=== PATIENT | female | born 1950 | race Caucasian/White ===

== ENCOUNTER 2018-05-04 13:28 | Inpatient (IN) | payer MEDICARE ==
[~2018-05-04] VITALS: Ht 162.6 cm; Wt 74.8 kg
[2018-05-04] VITALS (16 sets, daily range): BP systolic 132–160; BP diastolic 48–78; BMI 27.5
--- NOTE | ~2018-05-04 | DS ---
PATIENT:UDAY WILSON :46 MEDICAL RECORD: [id number] DISCHARGE SUMMARY ADMISSION DATE: 05/04/18 DISCHARGE DATE: 05/06/18 DATE OF SERVICE: 05/05/2018 DIAGNOSES: 1. Non-Q-wave myocardial infarction. 2. Coronary artery disease. 3. Percutaneous transluminal coronary angioplasty stent of left circumflex and right coronary artery this admission with concomitant disease of LAD. 4. Hypertension. 5. Hyperlipidemia. HOSPITAL COURSE: Ms. Wilson presents with a non-Q-wave myocardial infarction, found to have critical disease of all 3 heart vessels, underwent PTCA stent of her left circumflex and right coronary artery this admission, was discharged home with the addition of aspirin, Plavix, Pravachol, metoprolol to her medical regimen and will follow up with [facility] within the week for PTCA stent of the LAD. TRANSINT:[id number] Voice Confirmation ID: [id number] DOCUMENT ID: [id number] NATHAN TAYLOR MD at 1457 CC: [id number] DICTATION DATE: 05/06/18927 ORACLE DATABASE ADMINISTRATOR: 05/07/18 0623 DIS IN 05/06/18 [address] [place] [address]
--- NOTE | ~2018-05-04 | HEMODYNAMI ---
PATIENT:UDAY WILSON MEDICAL RECORD: [id number] : 46 LOCATION:D.I D.03 ADMISSION DATE: 05/04/18 Generatedon:05/04/201815:47 Patient name: UDAY WILSON Patient #: [id number] SSN: : 1950 Date of study: 05/04/2018 Page: Of Hemodynamic Procedure Report Patient Data Patient Demographics Procedure consent was obtained First Name: UDAY Gender: Female Last Name: STEVE : 1950 Patient #: [id number] Age: 68 year(s) Race: Unknown Additional ID: [id number] Contact details Address: UNKNOWN State: [place] City: UNKNOWN Zip code: . Admission Admission Data Procedure Procedure Types Cath Procedure Diagnostic Procedure LHC LHC w/Coronaries Sedation Charges Moderate Sedation up to 15 minutes PCI Procedure AMI/SVG/DRUGLESS DOCTOR PTCA or Stent AMI-BMS/SHRUTHI Initial Procedure Description Procedure Date Procedure Date: 05/04/2018 Procedure Start Time: 13:43 Procedure End Time: 14:06 Procedure Staff Name Function Nae Valadez RT Monitor Rommel Ruggiero RT Scrub Arnel Diego RN Nurse Moise Gamboa MD Performing Physician Procedure Data Cath Procedure Fluoroscopy Diagnostic fluoroscopy Total fluoroscopy Time: 3.6 time: 3.6 min min Diagnostic fluoroscopy Total fluoroscopy dose: 362 dose: 362 mGy mGy Contrast Material Contrast Material Type Amount (ml) Isovue 300 137 Entry Location Entry Primary Successful Side Size Upsize Upsize Entry Closure Succes sful Closure Location (Fr) 1 (Fr) 2 (Fr) Remarks Device Remarks Femoral Right 6 Fr Exoseal artery Short Estimated blood loss: 10 ml Diagnostic catheters Device Type Used For End Catheter Placement MULTIPACK Pigtail 5 Fr LV Angiography catheter MULTIPACK JL 4.0 5Fr Left Coronary catheter Angiography MULTIPACK 3DRC 5Fr Right Coronary catheter Angiography Procedure Complications No complications Procedure Medications Medication Administration Route Dosage Oxygen etCO2 Nasal cannula 2 l/min Heparin Flush Bag added to field 2 bags (1000units/500ml NS) 0.9% NaCl I.V. 100 ml/hr Fentanyl I.V. 50 mcg Versed I.V. 1 mg Fentanyl I.V. 50 mcg Versed I.V. 1 mg Nitroglycerin IC/IA I.C. 200 mcg Nitroglycerin IC/IA I.C. 200 mcg Integrilin (Bolus I.C. 7.3 ml 2mg/ml) Nitroglycerin IC/IA I.C. 200 mcg Plavix P.O. 300 mg Hemodynamics Rest Heart Rate: 74 (bpm) Snapshots Pre Cath Intra NCS Post Cath Vital Signs Time Heart Resp SPO2 etCO2 NIBP (mmHg) Rhythm Pain Sedation Rate (ipm) (%) (mmHg) Status Level (bpm) 13:35:02 65 18 99 0 153/73(115) NSR 0 (11) 10(A) , No pain 13:39:22 76 17 97 0 154/73(119) NSR 0 (11) 10(A) , No pain 13:43:42 74 17 97 0 136/66(113) NSR 0 (11) 10(A) , No pain 13:47:58 79 17 96 0 123/68(92) NSR 0 (11) 9(A) , No pain 13:52:08 80 17 97 0 128/73(108) NSR 0 (11) 9(A) , No pain 13:56:18 88 16 95 0 142/76(116) NSR 0 (11) 9(A) , No pain 14:00:34 76 17 96 0 156/76(127) NSR 0 (11) 9(A) , No pain 14:04:50 73 14 97 0 154/82(113) NSR 0 (11) 9(A) , No pain Medications Time Medication Route Dose Verified Delivered Reason Notes E ffectiveness by by 13:39:00 Oxygen etCO2 2 Moise Seals Per Nasal l/min Cooper Diego RN physician cannula 13:39:10 Heparin Flush added 2 Moise Seals used for Bag to bags Cooper Diego warehouse shipping associate (1000units/500ml field NS) 13:39:20 0.9% NaCl I.V. 100 Moise Seals Per ml/hr Cooper Diego RN physician 13:42:49 Fentanyl I.V. 50 Moise Seals for sedation misael Diego RN 13:42:58 Versed I.V. 1 mg Moise Seals for sedation Cooper Diego RN 13:46:16 Fentanyl I.V. 50 Moise Seals for sedation misael Diego RN 13:46:19 Versed I.V. 1 mg Moise Seals for sedation Cooper Diego RN 13:53:47 Nitroglycerin I.C. 200 Moise Phipps for IC/IA mcg Cooper Gamboa MD vasodilation 13:54:59 Nitroglycerin I.C. 200 Moise Phipps for IC/IA mcg Cooper Gamboa MD vasodilation 13:55:16 Integrilin I.C. 7.3 Moise Phipps for (Bolus 2mg/ml) ml Cooper Gamboa MD antiplatelet therapy 13:56:11 Nitroglycerin I.C. 200 Moise Phipps for IC/IA mcg Cooper Gamboa MD vasodilation 14:02:56 Plavix P.O. 300 Moise Seals for mg Cooper Diego RN antiplatelet therapy Procedure Log Time Note 13:22:32 Patient received from ED to CCL 3 Alert and oriented. Tansferred to table in Supine position. 13:22:49 PATIENT ARRIVED DIRECTLY TO MACHINE SETUP OPERATOR 13:22:54 Plan of Care:Hemodynamics will remain stable., Cardiac rhythm will remain stable., Comfort level will be maintained., Respiratory function will remain adequate., Patient/ family verbilizes understanding of procedure., Procedure tolerated without complication., Recovers from procedure without complications.. 13:22:56 Time tracking: Regular hours (M-F 7:00 - 5:00) 13:22:57 Warm blankets applied, and felisha hugger turned on for patient comfort. 13:22:58 Correct patient and procedure confirmed by team. 13:22:59 Signed procedure consent form obtained from patient. 13:27:48 ECG and BP/O2 sat monitors applied to patient. 13:27:49 Full Disclosure recording started 13:33:52 Vital chart was started 13:34:06 Rhythm: sinus rhythm 13:34:32 H&P Date Dictated: 05/04/2018 Emergent; H&P N/A. 13:34:33 Pre-op teaching completed and patient verbalized understanding. 13:34:33 Pre-procedure instructions explained to patient. 13:34:36 Family unavailable. 13:34:37 Patient NPO since Midnight. 13:34:50 Is the patient allergic to Iodine/contrast media? No. 13:34:52 Is patient on blood thinner?No 13:34:53 Patient diabetic? No. 13:34:56 Previous problem with sedation/anesthesia? No ? 13:34:57 Sleep apnea? No 13:34:57 Snore? Yes 13:34:59 Opens mouth fully? Yes 13:34:59 Deviated septum? No 13:35:00 Sticks out tongue? Yes 13:35:02 Airway obstruction? No ? 13:35:03 Dentures? No ? 13:35:06 Pre procedure: right dorsailis pedis pulse 2+ Normal; easily identifiable; not easily obliterated 13:38:36 IV patent on arrival in right antecubital with 0.9% NaCl at [facility]. 13:38:37 Lab results completed and on chart. 13:38:40 Right groin area was prepped with chlora-prep and draped in sterile fashion 13:38:41 Alarms reviewed by R. N. 13:38:42 Sharps counted by scrub and verified by R.N. 13:38:43 Final Timeout: patient, procedure, and site verified with staff and physician. All members of the team are in agreement. 13:38:45 Right groin site verified by team. 13:38:47 Physical assessment completed. ASA score P 4 - A patient with severe systemic disease that is a constant threat to life as per Moise Gamboa MD. 13:38:49 Sedation plan: IV Moderate Sedation Medication:Versed, Fentanyl 13:39:00 Oxygen 2 l/min etCO2 Nasal cannula was administered by Arnel Diego RN; Per physician; 13:39:10 Heparin Flush Bag (1000units/500ml NS) 2 bags added to field was administered by Arnel Diego RN; used for procedure; 13:39:20 0.9% NaCl 100 ml/hr I.V. was administered by Arnel Diego RN; Per physician; 13:41:31 Use device set Femoral Dx 13:41:32 ACIST Syringe (71533) opened to sterile field. 13:41:33 DIAGNOSTIC WIRE .035 260cm J wire (606447) opened to sterile field. 13:41:33 Medline Cath Pack ([id number]) opened to sterile field. 13:41:33 Bag Decanter (2002S) opened to sterile field. 13:41:34 ACIST Hand Control (44367) opened to sterile field. 13:41:35 DIAGNOSTIC Multipack 5Fr catheter set (GA7765) opened to sterile field. 13:41:35 ACIST Manifold (89829) opened to sterile field. 13:41:36 Tegaderm 4 x 4 (1626W) opened to sterile field. 13:41:44 Use device set TAUTH PCI 13:41:45 SHEATH 6FR [place] (RHL903) opened to sterile field. 13:41:47 CHOICE PT Extra Support 182cm wire ([id number]) opened to sterile field. 13:41:50 INFLATOR Merit BasixCompak (RO3829) opened to sterile field. 13:42:49 Fentanyl 50 mcg I.V. was administered by Arnel Diego RN; for sedation; 13:42:58 Versed 1 mg I.V. was administered by Arnel Diego RN; for sedation; 13:43:15 Procedure started. 13:43:19 Local anesthetic to right femoral artery with Lidocaine 2% by Moise Gamboa MD.INITIAL ACCESS ONLY 13:43:27 A 6 Fr Short sheath was inserted into the Right Femoral artery 13:43:50 A MULTIPACK Pigtail 5 Fr catheter was advanced over the wire and used for LV Angiography. 13:44:18 LV gram done using OSEGUERA 13:44:22 Injector settings: Ml/sec: 10, Volume: 20, 13:44:23 Catheter removed. 13:44:31 A MULTIPACK JL 4.0 5Fr catheter was advanced over the wire and used for Left Coronary Angiography. 13:45:25 GUIDE 6FR EBU 3.0 SH catheter ([id number]) opened to sterile field. 13:45:41 Baseline sample Acquired. 13:45:55 A MULTIPACK 3DRC 5Fr catheter was advanced over the wire and used for Right Coronary Angiography. 13:46:16 Fentanyl 50 mcg I.V. was administered by Arnel Diego RN; for sedation; 13:46:19 Versed 1 mg I.V. was administered by Arnel Diego RN; for sedation; 13:46:33 Catheter removed. 13:49:19 6 Fr EBU 3.0 SH guide catheter was inserted over the wire 13:49:37 CHOICE PT ES wire advanced. 13:49:48 Inflate balloon Inflation number: 1 A EUPHORA 2.5 x 15 Balloon ([id number]) was prepped and advanced across the Mid CX, then inflated to 7 REMY for 0:06 (min:sec). 13:49:55 Inflation number: 2 The EUPHORA 2.5 x 15 Balloon ([id number]) was reinflated across the Mid CX, to 7 REMY for 0:04 (min:sec). 13:50:09 Balloon removed over the wire. 13:52:05 Place stent Inflation Number: 3 A CARINE RX 2.5 x 22 stent ([id number]) was prepped and advanced across the Mid CX. The stent was deployed at 13 REMY for 0:05 (min:sec). 13:53:47 Nitroglycerin IC/IA 200 mcg I.C. was administered by Moise Gamboa MD; for vasodilation; 13:54:59 Nitroglycerin IC/IA 200 mcg I.C. was administered by Moise Gamboa MD; for vasodilation; 13:55:16 Integrilin (Bolus 2mg/ml) 7.3 ml I.C. was administered by Moise Gamboa MD; for antiplatelet therapy; 13:56:11 Nitroglycerin IC/IA 200 mcg I.C. was administered by Moise Gamboa MD; for vasodilation; 13:57:16 Guide catheter removed. 13:57:16 Wire removed. 13:57:23 Sheath removed intact; hemostasis achieved with Exoseal to the Right Femoral artery. 13:57:25 Procedure ended.(Physican Out) 13:58:12 Fluoroscopy time 03.60 minutes. 13:58:17 Fluoroscopy dose: 362 mGy 13:58:17 Flurop Dose total: 362 13:58:22 Contrast amount:Isovue 300 137ml. 13:58:23 Sharps counted by scrub and verified by R.N. 13:58:24 Insertion/operative site no bleeding no hematoma. 13:58:28 Post-op/insertion site Right Femoral artery dressed using a 4 x 4 and Tegaderm. 13:58:33 Post right femoral artery:stable, clean and dry 13:58:35 Post Procedure Pulses reassessed and unchanged 13:58:37 Post-procedure physical assessment completed. ASA score P 3 - A patient with severe systemic disease as per Moise Gamboa MD. 13:58:57 Post procedure rhythm: unchanged. 13:59:01 Estimated blood loss: 10 ml 13:59:05 Post procedure instruction explained to patient.Patient verbalizes understanding. 13:59:06 Patient needs reinforcement of post procedure teaching. 14:02:00 Procedure type changed to Cath procedure, Diagnostic procedure, LHC, LHC w/Coronaries, Sedation Charges, Moderate Sedation up to 15 minutes, PCI procedure, AMI/SVG/DRUGLESS DOCTOR PTCA or Stent, AMI-BMS/SHRUTHI Initial 14:02:18 Procedure Complication : No complications 14:02:44 See physician's report for complete and final results. 14:02:56 Plavix 300 mg P.O. was administered by Arnel Diego RN; for antiplatelet therapy; 14:03:12 EXOSEAL 6Fr (EX600) opened to sterile field. 14:05:15 Procedure and supply charges have been captured, reviewed, submitted and are correct. 14:05:49 Vital chart was stopped 14:05:51 Report given to CVICU. 14:05:54 Patient transfered to CVICU with Bed. 14:06:02 Full Disclosure recording stopped 14:06:02 Procedure ended. 14:06:06 End room use (Document Last) Intervention Summary Intervention Notes Time ActionType Lesion and Equipment Used Action# Pressure Duration Attributes 13:49:48 Inflate Mid CX EUPHORA 2.5 x 1 7 00:06 balloon 15 Balloon ([id number]) 13:49:55 Reinflate Mid CX EUPHORA 2.5 x 2 7 00:04 balloon 15 Balloon ([id number]) 13:52:05 Place stent Mid CX CARINE RX 2.5 x 3 13 00:05 22 stent ([id number]) Device Usage Item Name Manufacture Quantity Catalog Number Hospital Part Current M inimal Lot# / Charge Number Stock Stock Serial# Code ACIST Syringe Acist 1 74791 661970 492646 136909 2 0 (94839) Medical Systems Inc Bag Decanter Microtek 1 114590 81088 959653 5 () Medical Inc. Medline Cath Medline 1 [id number] 994294 20854 789780 5 Pack ([id number]) DIAGNOSTIC [place] 1 483673 732490 603214 432163 3 0 WIRE .035 260cm J wire (304797) ACIST Hand Acist 1 21089 582866 681893 478258 5 Control Medical (27622) Systems Inc ACIST Manifold Acist 1 34838 578729 021232 515897 5 (91624) Medical Systems Inc DIAGNOSTIC Cardinal 1 ZH2833 906960 15771 047255 3 0 Multipack 5Fr Health catheter set ([id number]) Tegaderm 4 x 4 3M 1 1626W 639739 888486 776093 5 (1626W) SHEATH 6FR Terumo 1 CZQ925 597560 822721 155660 4 0 [place] (ZUS419) CHOICE PT [place] 1 [id number] 527986 349851 361714 5 Extra Support Scientific 182cm wire ([id number]) INFLATOR Merit Merit 1 TG4727 004932 836527 830193 1 5 PhoneGuard ([id number]) MULTIPACK Cardinal 1 671658 5 Pigtail 5 Fr Health catheter MULTIPACK JL Cardinal 1 [id number] 5 4.0 5Fr Health catheter GUIDE 6FR EBU Medtronic 1 [id number] 283074 36171 659667 0 3.0 SH catheter ([id number]) MULTIPACK 3DRC Cardinal 1 083131 5 5Fr catheter Health EUPHORA 2.5 x Medtronic 1 [id number] 700614 922107 498202 5 [id number] 15 Balloon ([id number]) CARINE RX 2.5 x Medtronic 1 [id number] 931746 4088463 776061 5 [id number] 22 stent ([id number]) EXOSEAL 6Fr Cardinal 1 EX600 959573 132312 543828 1 0 (EX600) Health Signature Audit [place] Stage Time Signature Unsigned Intra-Procedure 05/04/2018 Nae 2:09:21 PM Counts RT(R) Signatures Monitor : Nae Signature : Counts RT Date : Time : [facility] [address] [place] [address]
--- NOTE | ~2018-05-04 | HP ---
PATIENT: UDAY WILSON MEDICAL RECORD: [id number] ACCOUNT: [id number] LOCATION:[address] : 46 ADMISSION DATE: 05/04/18 PCP: No PCP HISTORY AND PHYSICAL EXAMINATION DIAGNOSES: 1. Non-Q-wave myocardial infarction. 2. Coronary artery disease. 3. Hypertension. 4. Hyperlipidemia. HISTORY OF PRESENT ILLNESS: Mrs. Wilson has had no previous cardiac history. She began having chest pain today at 2:00 a.m. She had an episode of chest pain earlier in the week; however, this resolved. The one at 2:00 a.m. did not resolve, she presents to [facility]. She has an increased troponin. She continues to have severe chest pain. PHYSICAL EXAMINATION: GENERAL APPEARANCE: Well-nourished, well-developed, appears stated age. Level of distress, comfortable. PSYCHIATRIC: Mental status, alert, normal affect. Orientation, oriented to time, place and person. EYES: Lids and conjunctiva, noninjected. No discharge, no pallor. ENT: Lips, teeth, gums, normal dentition. Oropharynx, no cyanosis, no pallor. NECK: Carotid arteries, bilateral normal upstroke, no bruits, no thrills. JUGULAR VEINS: No jugular venous pressure or distention. CERVICAL LYMPH NODES: Nontender, nonenlarged. THYROID: Not enlarged. Nontender. No nodules. LUNGS: Respiratory effort, unlabored. CHEST: Normal curvature. No thoracic deformity. No chest wall tenderness. Percussion, resonant. Auscultation, clear. No wheezes, no rales, no rhonchi. CARDIOVASCULAR: Precordial exam, nondisplaced. No heaves or pericardial thrills. Rate and rhythm, regular. Heart sounds, normal S1, normal S2. No S3, no gallop, no rub. Systolic murmur, not heard. Diastolic murmur, not heard. EXTREMITIES: No cyanosis, no edema. Peripheral pulses, full and equal in all extremities, except as noted. No bruits appreciated. ABDOMEN: Soft, nondistended. Normal aorta. No bruit. Nontender. No masses. Liver, nontender, no hepatomegaly. Spleen, nontender, no splenomegaly. MUSCULOSKELETAL: No joint tenderness. No joint swelling. No erythema. NEUROLOGICAL: Normal gait, normal strength, normal tone. SKIN: Warm and dry. OVERALL IMPRESSION: Non-Q-wave myocardial infarction with continued chest pain. No doubt she has hemodynamically significant coronary artery disease. We will proceed with coronary angiography. Further care depends upon the findings of the angiography. TRANSINT:[id number] Voice Confirmation ID: [id number] DOCUMENT ID: [id number] HISTORY AND PHYSICAL [id number] UDAY WILSON JEFFREY MD at 1456 CC: [id number] DICTATION DATE: 05/04/18 1405 UNIT EDUCATOR: 05/04/18 1437 DIS IN 05/06/18 [facility] [address] [place] [address]
--- NOTE | ~2018-05-04 | HEMODYNAMI ---
PATIENT:UDAY WILSON MEDICAL RECORD: [id number] : 46 [address] [id number] ADMISSION DATE: 05/04/18 Generatedon:05/06/20189:31 Patient name: UDAY WILSON Patient #: [id number] SSN: : 1950 Date of study: 05/06/2018 Page: Of Hemodynamic Procedure Report Patient Data Patient Demographics Procedure consent was obtained First Name: UDAY Gender: Female Last Name: STEVE : 1950 Patient #: [id number] Age: 68 year(s) Race: Unknown Additional ID: [id number] Contact details Address: [address] [place] [address] State: [place] City: [place] Zip code: [address] Past Medical History Allergies: No known allergies Admission Admission Data Admission Date: 05/04/2018 Admission Time: 14:43 Room #: 2130 Lab Results Lab Result Date: 05/06/2018 Lab Result Time: 4:45 Biochemistry Name Units Result Min Max BUN mg/dl 14 --(--*-)-- 7 18 Creatinine mg/dl 0.8 --(-*--)-- 0.6 1.3 CBC Name Units Result Min Max Hematocrit % 38.4 *-(----)-- 42 54 Hemoglobin g/dl 12.8 -*(----)-- 13.5 17.5 Procedure Procedure Types Cath Procedure Diagnostic Procedure FFR/IVUS Intra-Coronary IVUS Initial PCI Procedure Coronary Stent Coronary Stent Initial Peripheral Cath Diagnostic Procedure Abd/Extremity Extremities Bilat Lower Extremity Procedure Description Procedure Date Procedure Date: 05/06/2018 Procedure Start Time: 9:10 Procedure End Time: 9:29 Procedure Staff Name Function Moise Gamboa MD Performing Physician Ash Washington RT Monitor Arnel Diego RN Nurse Nae Valadez RT Scrub Procedure Data Cath Procedure Entry Location Entry Primary Successful Side Size Upsize Upsize Entry Closure [place] ccessful Closure Location (Fr) 1 (Fr) 2 (Fr) Remarks Device Remarks Radial Right 6 Fr Mechanical artery Short Compression Estimated blood loss: 10 ml Diagnostic catheters Device Type Used For End Catheter Placement DIAGNOSTIC Aqua Procedure Berenstein 125cm 5Fr catheter ([id number]) Procedure Complications No complications Procedure Medications Medication Administration Route Dosage Oxygen etCO2 Nasal cannula 2 l/min Heparin Flush Bag added to field 2 bags (1000units/500ml NS) 0.9% NaCl I.V. 100 ml/hr Radial Cocktail added to field 1 syringe (Verapomil 2mg/Nitro 400mcg/Heparin 1500units) Lidocaine 2% added to field 20 Phenergan I.V. 25 mg Fentanyl I.V. 50 mcg Versed I.V. 1 mg Heparin Bolus I.V. 4000 units Radial Cocktail I.A. 1 syringe (Verapomil 2mg/Nitro 400mcg/Heparin 1500units) Fentanyl I.V. 50 mcg Versed I.V. 1 mg Hemodynamics Rest HGB: 12.8 (g/dl) Heart Rate: 63 (bpm) Snapshots Pre Cath Intra NCS Post Cath Vital Signs Time Heart Resp SPO2 etCO2 NIBP (mmHg) Rhythm Pain Sedation Rate (ipm) (%) (mmHg) Status Level (bpm) 9:01:01 65 17 98 0 144/82(123) NSR 0 (11) 10(A) , No pain 9:05:17 63 17 99 0 127/79(109) NSR 0 (11) 10(A) , No pain 9:09:28 64 17 96 0 108/65(93) NSR 0 (11) 10(A) , No pain 9:13:38 65 17 95 21.1 98/59(74) NSR 0 (11) 9(A) , No pain 9:17:44 64 16 95 9.8 109/60(92) NSR 0 (11) 9(A) , No pain 9:21:54 63 17 96 18.1 101/61(83) NSR 0 (11) 9(A) , No pain 9:24:50 61 16 97 24.9 117/65(89) NSR 0 (11) 9(A) , No pain 9:29:02 97 21.9 113/60(97) NSR 0 (11) 9(A) , No pain Medications Time Medication Route Dose Verified Delivered Reason Note s Effectiveness by by 9:01:35 Oxygen etCO2 2 l/min Moise Seals Per physician Nasal Cooper Diego RN cannula 9:01:44 Heparin Flush added 2 bags Moise Seals used for Bag to Cooper Diego RN procedure (1000units/500ml field NS) 9:01:53 0.9% NaCl I.V. 100 Moise Seals Per physician ml/hr Cooper Diego RN 9:02:00 Radial Cocktail added 1 Moise Seals used for (Verapomil to syringe Cooper Diego RN procedure 2mg/Nitro field 400mcg/Heparin 1500units) 9:02:08 Lidocaine 2% added 20ml Moise Seals used for to vial Cooper Diego RN procedure field 9:04:54 Phenergan I.V. 25 mg Moise Seals for nausea Cooper Diego RN 9:09:34 Fentanyl I.V. 50 mcg Moise Seals for sedation Cooper Diego RN 9:09:42 Versed I.V. 1 mg Moise Seals for sedation Cooper Diego RN 9:11:28 Radial Cocktail I.A. 1 Moise Phipps for (Verapomil syringe Cooper Gamboa MD vasodilation 2mg/Nitro 400mcg/Heparin 1500units) 9:13:13 Heparin Bolus I.V. 4000 Moise Bhaktay for units Cooper Diego RN anticoagulation 9:19:10 Fentanyl I.V. 50 mcg Moise Seals for sedation Cooper Diego RN 9:19:16 Versed I.V. 1 mg Moise Seals for sedation Cooper Diego RN Procedure Log Time Note 8:24:57 Time tracking: Call back (After hours or weekends) 8:25:01 Plan of Care:Hemodynamics will remain stable., Cardiac rhythm will remain stable., Comfort level will be maintained., Respiratory function will remain adequate., Patient/ family verbilizes understanding of procedure., Procedure tolerated without complication., Recovers from procedure without complications.. 8:32:49 Arnel Diego RN sent for patient. Start room use. 8:46:37 Patient received from Med II to [facility] 1 Alert and oriented. Tansferred to table in Supine position. 8:46:38 Warm blankets applied, and felisha hugger turned on for patient comfort. 8:46:38 Correct patient and procedure confirmed by team. 8:46:39 Signed procedure consent form obtained from patient. 8:46:40 ECG and BP/O2 sat monitors applied to patient. 8:46:41 Pre-procedure instructions explained to patient. 8:46:42 Pre-op teaching completed and patient verbalized understanding. 8:46:43 Family in waiting room. 8:46:44 Patient NPO since Midnight. 8:59:52 Vital chart was started 9:01:35 Oxygen 2 l/min etCO2 Nasal cannula was administered by Arnel Diego RN; Per physician; 9:01:44 Heparin Flush Bag (1000units/500ml NS) 2 bags added to field was administered by Arnel Diego RN; used for procedure; 9:01:53 0.9% NaCl 100 ml/hr I.V. was administered by Arnel Diego RN; Per physician; 9:02:00 Radial Cocktail (Verapomil 2mg/Nitro 400mcg/Heparin 1500units) 1 syringe added to field was administered by Arnel Diego RN; used for procedure; 9:02:08 Lidocaine 2% 20ml vial added to field was administered by Arnel Diego RN; used for procedure; 9:03:41 Baseline sample Acquired. 9:03:43 Rhythm: sinus rhythm 9:03:46 Full Disclosure recording started 9:03:50 Patient allergic to No known allergies 9:03:51 Is the patient allergic to Iodine/contrast media? No. 9:03:52 Is patient on blood thinner?Yes 9:03:54 ACC The patient was administered the following blood thiners within the last 24 hours: ACCPlavix 9:04:06 Patient diabetic? Yes. 9:04:07 If diabetic: On Metformin? No 9:04:10 Previous problem with sedation/anesthesia? No ? 9:04:12 Snore? Yes 9:04:12 Sleep apnea? No 9:04:13 Deviated septum? No 9:04:13 Opens mouth fully? Yes 9:04:14 Sticks out tongue? Yes 9:04:16 Airway obstruction? No ? 9:04:19 Dentures? No ? 9:04:27 Pre procedure: right posterior tibial pulse 2+ Normal; easily identifiable; not easily obliterated 9:04:31 Pre procedure: left posterior tibial pulse 2+ Normal; easily identifiable; not easily obliterated 9:04:39 Modified Adriel's test Ulnar < 7 seconds 9:04:40 Patient pain scale 0/10 ?. 9:04:47 IV right wrist D/C'd due to infiltration. 9:04:54 Phenergan 25 mg I.V. was administered by Arnel Diego RN; for nausea; 9:04:59 IV started by Arnel Diego RN inleft forearm with a 22 gauge IV catheter with 0.9% NaCl at KVO. 9:05:08 IV Extension Set opened to sterile field. 9:05:08 IV CATHETER 22g opened to sterile field. 9::46 Lab Result : BUN 14 mg/dl 9::46 Lab Result : Creatinine 0.8 mg/dl 9:05:46 Lab Result : Hemoglobin 12.8 g/dl 9:05:46 Lab Result : Hematocrit 38.4 % 9:05:48 Lab results completed and on chart. 9:05:51 Right Radial & Left Groin area was prepped with chlora-prep and draped in sterile fashion 9:05:52 Alarms reviewed by R. N. 9:05:52 Sharps counted by scrub and verified by R.N. 9:05:54 Use device set Radial Dx or PCI 9:05:55 ACIST Syringe (81300) opened to sterile field. 9:05:55 Medline Cath Pack ([id number]) opened to sterile field. 9:05:56 Bag Decanter (2002) opened to sterile field. 9:05:56 ACIST Manifold (68587) opened to sterile field. 9:05:57 ACIST Hand Control (46261) opened to sterile field. 9:05:58 Tegaderm 4 x 4 (1626W) opened to sterile field. 9:05:58 MBrace Wrist Support ([id number]) opened to sterile field. 9:05:59 SHEATH 6FR Slender (80-7482) opened to sterile field. 9:06:00 DIAGNOSTIC WIRE .035 260cm J wire (256572) opened to sterile field. 9:06:19 INFLATOR Merit BasixCompak (FX1919) opened to sterile field. 9:06:20 CHOICE PT Extra Support 182cm wire ([id number]) opened to sterile field. 9::34 Physician paged 9:: Final Timeout: patient, procedure, and site verified with staff and physician. All members of the team are in agreement. 9::00 --------ALL STOP TIME OUT------ 9::00 Physician arrived 9::03 Right Radial & Left Groin site verified by team. 9:: Physical assessment completed. ASA score P 2 - A patient with mild systemic disease as per Moise Gamboa MD. 9::12 Sedation plan: IV Moderate Sedation Medication:Versed, Fentanyl 9::34 Fentanyl 50 mcg I.V. was administered by Arnel Diego RN; for sedation; 9::39 Zero performed for pressure channel P1 9::42 Versed 1 mg I.V. was administered by Arnel Diego RN; for sedation; 9::55 GUIDE 6FR AR 2.0 catheter ([id number]) opened to sterile field. 9::00 Procedure started. 9:10:04 Local anesthetic to right radial artery with Lidocaine 2% by Moise Gamboa MD.INITIAL ACCESS ONLY 9:10:20 A 6 Fr Short sheath was inserted into the Right Radial artery 9:11:28 Radial Cocktail (Verapomil 2mg/Nitro 400mcg/Heparin 1500units) 1 syringe I.A. was administered by Moise Gamboa MD; for vasodilation; 9:12:58 A DIAGNOSTIC Aqua Berenstein 125cm 5Fr catheter ([id number]) was advanced over the wire and used for Procedure. 9:13:13 Heparin Bolus 4000 units I.V. was administered by Arnel Diego RN; for anticoagulation; 9:14:04 Right leg runoff performed. 9:14:29 Right leg runoff performed. 9:14:55 Catheter exchanged over wire. 9:15:01 6 Fr ar 2 guide catheter was inserted over the wire 9:16:53 [place] Shosh[place]-Bann[place] Eagleye IVUS Catheter (12918D) opened to sterile field. 9:16:59 choice pt es wire advanced. 9:17:01 Wire advanced across lesion. 9:17:03 IVUS catheter advanced over wire. 9:17:06 IVUS pass to RCA lesion performed. 9:19:10 Fentanyl 50 mcg I.V. was administered by Arnel Diego RN; for sedation; 9::16 Versed 1 mg I.V. was administered by Arnel Diego RN; for sedation; 9::11 IVUS catheter removed over wire. 9::53 Place stent Inflation Number: 1 A CARINE RX 3.5 x 38 stent ([id number]) was prepped and advanced across the Prox RCA. The stent was deployed at 17 REMY for 0:10 (min:sec). 9::58 Stent catheter was removed intact over wire. 9::59 Wire removed. 9:23:01 Guide catheter removed. 9:23:05 TR BAND Standard ([id number]) opened to sterile field. 9:23:22 Sheath removed intact; hemostasis achieved with Mechanical Compression to the Right Radial artery. 9:23:46 Procedure ended.(Physican Out) 9:24:04 TR band inflated with 10cc of air. 9:26:03 Post right radial artery:stable, soft, clean and dry 9:26:04 Post Procedure Pulses reassessed and unchanged 9:26:06 Post-procedure physical assessment completed. ASA score P 2 - A patient with mild systemic disease as per Moise Gamboa MD. 9:26:08 Post procedure rhythm: unchanged. 9:26:10 Estimated blood loss: 10 ml 9:26:11 Post procedure instruction explained to patient.Patient verbalizes understanding. 9:26:11 Patient needs reinforcement of post procedure teaching. 9:26:51 Procedure type changed to Cath procedure, Diagnostic procedure, FFR/IVUS, Intra-Coronary IVUS Initial, PCI procedure, Coronary Stent, Coronary Stent Initial, Peripheral Cath Diagnostic Procedure, Abd/Extremity, Extremities, Bilat Lower Extremity 9:29:20 Procedure and supply charges have been captured, reviewed, submitted and are correct. 9::22 Procedure Complication : No complications 9::24 Vital chart was stopped 9::24 See physician's report for complete and final results. 9:: Report given to PCU. 9::28 Patient transfered to PCU with Stretcher. 9::29 Procedure ended. 9:29:29 Full Disclosure recording stopped 9::44 End room use (Document Last) Intervention Summary Intervention Notes Time ActionType Lesion and Equipment Used Action# Pressure Duration Attributes 9:22:53 Place stent Prox RCA CARINE RX 3.5 x 1 17 00:10 38 stent ([id number]) Device Usage Item Name Manufacture Quantity Catalog Number Hospital Part Current M inimal Lot# / Charge Number Stock Stock Serial# Code IV Extension Hospira 1 09682-88 279431 33494 423293 5 Set IV CATHETER B. Hopson 1 [id number] 527978 323620 013728 5 22g ACIST Syringe Acist 1 38497 093105 085797 257008 2 0 (83364) Medical Systems Inc Medline Cath Medline 1 [id number] 746172 85574 851769 5 Pack ([id number]) Bag Decanter Microtek 1 2001S 846137 62530 715132 5 (2001S) Medical Inc. ACIST Manifold Acist 1 90034 047898 028546 072073 5 (55822) Medical Systems Inc ACIST Hand Acist 1 28817 268901 600780 998395 5 Control Medical (91929) Systems Inc Tegaderm 4 x 4 3M 1 1626W 532962 020779 504225 5 (1626W) MBrace Wrist Advanced 1 140-0250-00 665686 08520 061686 5 Support Vascular ([id number]) Dynamics SHEATH 6FR Terumo 1 [id number] 567055 236702 860521 5 Slender (80-1060) DIAGNOSTIC [place] 1 060277 017799 951848 424410 3 0 WIRE .035 260cm J wire (229231) INFLATOR Merit Merit 1 FY4393 502188 769619 668490 1 5 ServiceNow (SU1974) CHOICE PT [place] 1 [id number] 789795 937729 875378 5 Extra Support Scientific 182cm wire ([id number]) GUIDE 6FR AR Medtronic 1 [id number] 174157 04494 025395 1 2.0 catheter (SU4QY25) DIAGNOSTIC Cardinal 1 FXE1103 414414 350562 475829 5 BasisCode [facility] 125cm 5Fr catheter (AQA9247) [place] 1 83025P 427579 049540 889218 8 [place] Eagleye IVUS Catheter (89121A) CARINE RX 3.5 x Medtronic 1 [id number] 851450 0784451 080150 5 [id number] 38 stent ([id number]) TR BAND Terumo 1 [id number] 884685 343283 659907 4 0 Standard (VDQ93DGW) Signature Audit Benson Stage Time Signature Unsigned Intra-Procedure 05/06/2018 Ash Washington 9:31:50 AM RT(R) Signatures Monitor : Ash Washington RT Signature : Date : Time : [place] [address] [place] [address]
--- NOTE | ~2018-05-04 | OP ---
PATIENT NAME: UDAY WILSON MEDICAL RECORD: [id number] :[birth year] LOCATION:D.M2 D.2130 ADMISSION DATE:05/04/18 SURGEON: NATHAN TAYLOR MD DATE OF OPERATION: 05/06/2018 PROCEDURES: 1. PTCA stent RCA. 2. Intravascular ultrasound. 3. Selective coronary angiography. INDICATION: Angina and coronary artery disease. PROCEDURE IN DETAIL: After informed consent was obtained and after a detailed description of the risks, benefits as well as alternative therapies, the patient elected to proceed with angiogram and angioplasty. The right radial area was prepped and draped in normal sterile fashion. Right radial artery was cannulated via modified Seldinger technique with placement of 6-Uzbek sheath. All catheters exchanged through this sheath. FINDINGS: The right coronary artery has 2 areas of stenosis from 60% to 80%, confirmed by intravascular ultrasound. These were both covered with a 3.5 x 38 mm Pedro Pablo stent. Result was 0% residual stenosis. OVERALL IMPRESSION: Successful percutaneous transluminal coronary angioplasty stent of the right coronary artery going from 80% initial stenosis to 0% residual. TRANSINT:[id number] Voice Confirmation ID: [id number] DOCUMENT ID: [id number] NATHAN TAYLOR MD at 1457 CC: [id number] DICTATION DATE: 05/06/18930 SKIING INSTRUCTOR: 05/06/18 1025 DIS IN 05/06/18 [facility] [address] [place] [address]
--- NOTE | ~2018-05-04 | OP ---
PATIENT NAME: UDAY WILSON MEDICAL RECORD: [id number] :[birth year] LOCATION:D.M2 D.2130 ADMISSION DATE:05/04/18 SURGEON: NATHAN TAYLOR MD DATE OF OPERATION: 05/04/2018 PROCEDURES: 1. PTCA and stent, left circumflex. 2. Left heart catheterization. 3. Selective coronary angiography. 4. Left ventriculogram. INDICATION: Non-Q-wave myocardial infarction. PROCEDURE: After informed consent was obtained with detailed explanation of risks and benefits as well as alternative therapies, the patient elected to proceed with angiogram and angioplasty. The right femoral area was prepped and draped in normal sterile fashion. The right femoral artery was cannulated via modified Seldinger technique with placement of 6-Maltese sheath. All catheters were exchanged through this sheath. FINDINGS: Left ventriculogram performed in standard 30-degree OSEGUERA view reveals preserved cardiac wall motion. Ejection fraction 50%. SELECTIVE CORONARY ANGIOGRAPHY: 1. Left main has no significant angiographic disease. 2. Left anterior descending has 85% to 90% stenosis proximally. 3. Left circumflex has 95% stenosis in mid vessel with KATIE 1 flow. 4. Right coronary has hazy area of 70% stenosis times 2. PTCA AND STENT OF THE LEFT CIRCUMFLEX: The stent used was a 2.5 x 22-mm Pedro Pablo. Result was 0% residual stenosis. OVERALL IMPRESSION: Successful PTCA and stent of the left circumflex, going from 95% initial stenosis to 0% residual. TRANSINT:[id number] Voice Confirmation ID: [id number] DOCUMENT ID: [id number] NATHAN TAYLOR MD at 1456 CC: [id number] DICTATION DATE: 05/04/18 1406 OPTICAL GLASS WET INSPECTOR: 05/04/18 1832 DIS IN 05/06/18 [facility] [address] [place] [id number]
--- NOTE | ~2018-05-04 | MORECARE ---
CASE MANAGEMENT DISCHARGE SUMMARY PATIENT: UDAY WILSON UNIT: [id number] ADM DATE: 05/04/18 AGE: 68 : [birth year] SEX: F ROOM/BED: D.6400 AUTHOR: BILL,DOC PHYSICIAN: REFERRING PHYSICIAN: NATHAN TAYLOR MD DATE OF SERVICE: 05/07/18 Discharge Plan Patient Name: UDAY WILSON Facility: [facility]:[place] : 1950 Planned Disposition: Home Anticipated Discharge Date: 05/06/18 Discharge Date: 05/06/2018 Expected LOS: 2 Initial Reviewer: [email or web address] Initial Review Date: 05/06/2018 Generated: 05/07/18 12:22 pm Comments DCP- Discharge Planning Updated by [email or web address]: Loida Gallegos on 05/06/18 9:[address] Patient Name: UDAY WILSON Admission Status: ER Accout number: [id number] Admission Date: 05-04-2018 : 1950 Admission Diagnosis: Attending: ELIZABETH TAYLOR Current LOS: 2 Anticipated DC Date: 05-06-2018 Planned Disposition: Home Primary Insurance: [employer] CHOICE PPO MCR ADVANT Discharge Planning Comments: CM MET WITH PATIENT AND HER CHECO. PATIENT WAS VERY DROWSY DUE TO JUST GETTING BACK FROM STENT PLACEMENT. PERMISSION WAS GIVEN BY HER TO SPEAK TO HER . HE STATES THE PLAN IS TO RETURN HOME LATER TODAY. STATES NO NEEDS. IM SERVED. CM WILL FOLLOW AND ASSIST NEEDED WITH DC PLANNING/NEEDS. Emergency Detail Driver: Loida Gallegos DCPIA - Discharge Planning Initial Assessment Updated by [email or web address]: Loida Gallegos on 05/06/18 10:55 am * PCP DENIZ IN [place] * Pharmacy [facility] IN [place] * Preadmission Environment Home with Family * ADLs Independent * Equipment Glucometer * List name and contact numbers for known caregivers / representatives who currently or will assist patient after discharge: CHECO, , * Community resources currently utilized None * Additional services required to return to the preadmission environment? No * Can the patient safely return to the preadmission environment? Yes * Has this patient been hospitalized within the prior 30 days at any hospital? No Coverage Notice Reviewer: [id number] - Loida Gallegos Notice Issued Date-Time: 05/06/2018 10:51 Notice Type: IM Discharge Notice Notice Delivered To: Other Relationship to Patient: Spouse Plant Physiology Teacher Name: CHECO WILSON Delivery Method: HAND - Hand Delivered No Days: Prior Verbal Notification: Recipient Understood Notice: Yes Recipient Signature: Yes Med Rec Note Co-signed by Attending: Coverage Notice Comment: IM SERVED TO , PATIENT WAS STILL DROWSY FROM HAVING STENT PLACEMENT. Last DP export: 05/06/18 9:58 Patient Name: UDAY WILSON Page [phone] at 1122 All edits/amendments must be made on the electronic document DICTATION DATE: 05/07/181121 ELECTRIC RAZOR MECHANIC: ROSEMARIE 05/07/181121 RPT#: [id number] [place] DATE:05/06/18 STATUS: DIS IN [facility] [address] [place] [address] END OF REPORT
--- NOTE | ~2018-05-04 | OP ---
PATIENT NAME: UDAY WILSON MEDICAL RECORD: [id number] :46 LOCATION:D.M2 D.2130 ADMISSION DATE:05/04/18 SURGEON: NATHAN TAYLOR MD DATE OF OPERATION: 05/06/2018 PROCEDURES: 1. Aortofemoral runoff. 2. Abdominal aortography. INDICATION: Peripheral vascular disease and claudication. PROCEDURE PERFORMED: After informed consent was obtained and after a detailed description of the risks, benefits as well as alternative therapies, the patient elected to proceed with aortofemoral runoff. The right radial area had a preexisting sheath. All catheters exchanged through this sheath. The catheter was advanced to the abdominal aorta, it was then advanced to each leg. FINDINGS: Abdominal aortography reveals no significant abdominal aortic disease, no dissection or aneurysm formation. RIGHT LEG: A. Iliac: The common internal and external iliacs have moderate irregularities, no stenosis greater than 20%, no flow-limiting stenosis. B. Femoral system: The common superficial and deep femoral have moderate irregularities, but no flow-limiting stenosis. No stenosis greater than 20%. C. Popliteal and infrapopliteal vessels have mild diffuse disease, but preserved 3-vessel runoff to the foot. LEFT LEG: A. Iliac: The common internal and external iliacs have moderate irregularities, no stenosis greater than 20%, no flow-limiting stenosis. B. Femoral system: The common superficial and deep femoral have moderate irregularities, but no flow-limiting stenosis. No stenosis greater than 20%. C. Popliteal and infrapopliteal vessels have mild diffuse disease, but preserved 3-vessel runoff to the foot. OVERALL IMPRESSION: Minimal peripheral vascular disease is present. No flow limiting stenosis, leg pain is nonarteriovascular in etiology. TRANSINT:[id number] Voice Confirmation ID: [id number] DOCUMENT ID: [id number] NATHAN TAYLOR MD at 1457 CC: [id number] DICTATION DATE: 05/06/18930 RESPIRATORY ASSISTANT: 05/06/18 1026 DIS IN 05/06/18 [facility] [address] [place] [address]
--- NOTE | ~2018-05-04 | MORECARE ---
CASE MANAGEMENT DISCHARGE SUMMARY PATIENT: UDAY WILSON UNIT: [id number] ADM DATE: 05/04/18 AGE: 68 : 48 SEX: F ROOM/BED: D.6339 AUTHOR: BILLDOC PHYSICIAN: REFERRING PHYSICIAN: NATHAN TAYLOR MD DATE OF SERVICE: 05/06/18 Discharge Plan Patient Name: UDAY WILSON Facility: [facility]:[place] : 1950 Planned Disposition: Home Anticipated Discharge Date: 05/06/18 Discharge Date: Expected LOS: 2 Initial Reviewer: [email or web address] Initial Review Date: 05/06/2018 Generated: 05/06/18 11:58 am Comments DCP- Discharge Planning Updated by [email or web address]: Loida Gallegos on 05/06/18 9:[address] Patient Name: UDAY WILSON Admission Status: ER Accout number: [id number] Admission Date: 05-04-2018 : 1950 Admission Diagnosis: Attending: ELIZABETH TAYLOR Current LOS: 2 Anticipated DC Date: 05-06-2018 Planned Disposition: Home Primary Insurance: [employer] CHOICE PPO MCR ADVANT Discharge Planning Comments: CM MET WITH PATIENT AND HER CHECO. PATIENT WAS VERY DROWSY DUE TO JUST GETTING BACK FROM STENT PLACEMENT. PERMISSION WAS GIVEN BY HER TO SPEAK TO HER . HE STATES THE PLAN IS TO RETURN HOME LATER TODAY. STATES NO NEEDS. IM SERVED. CM WILL FOLLOW AND ASSIST NEEDED WITH DC PLANNING/NEEDS. Lead Manufacturing Technician: Loida Gallegos DCPIA - Discharge Planning Initial Assessment Updated by [id number]: Loida Gallegos on 05/06/18 10:55 am * PCP DENIZ IN [place] * Pharmacy [facility] IN [place] * Preadmission Environment Home with Family * ADLs Independent * Equipment Glucometer * List name and contact numbers for known caregivers / representatives who currently or will assist patient after discharge: CHECO, , * Community resources currently utilized None * Additional services required to return to the preadmission environment? No * Can the patient safely return to the preadmission environment? Yes * Has this patient been hospitalized within the prior 30 days at any hospital? No Coverage Notice Reviewer: [id number] - Loida Gallegos Notice Issued Date-Time: 05/06/2018 10:51 Notice Type: IM Discharge Notice Notice Delivered To: Other Relationship to Patient: Spouse Coverage Specialist Rn Name: CHECO WILSON Delivery Method: HAND - Hand Delivered No Days: Prior Verbal Notification: Recipient Understood Notice: Yes Recipient Signature: Yes Med Rec Note Co-signed by Attending: Coverage Notice Comment: IM SERVED TO , PATIENT WAS STILL DROWSY FROM HAVING STENT PLACEMENT. Patient Name: UDAY WILSON Page [phone] at 1058 All edits/amendments must be made on the electronic document DICTATION DATE: 05/06/18 1057 BOTTLING MACHINE OPERATOR: ROSEMARIE 05/06/18 1057 RPT#: [id number] DC DATE: STATUS: ADM IN [facility] [address] [place] [address] END OF REPORT
[2018-05-04] MEDS ORDERED: PRINIVIL20 MG PO (19:57)
[2018-05-04] MEDS ORDERED: GLIMEPIRIDE1 MG PO (19:58)
[2018-05-04] MEDS ORDERED: LANTUS SQ (20:01)
[2018-05-04 22:23] LABS: APPEARANCE CLEAR (CLEAR); BILIRUBIN NEGATIVE (NEGATIVE); COLOR YELLOW (YELLOW); GLUCOSE 1000 mg/dL (NEGATIVE); KETONE MODERATE mg/dL (NEGATIVE); NITRITE NEGATIVE (NEGATIVE); PROTEIN TRACE mg/dL (NEGATIVE); UROBILINOGEN NORMAL (NORMAL)
[2018-05-04 22:24] LABS: BACTERIA FEW /hpf (NONE SEEN); RED CELLS - URINE 0-5 /hpf (0-5); WHITE CELLS - URINE OCC /hpf (0-5)
[2018-05-05] VITALS (16 sets, daily range): BP systolic 122–144; BP diastolic 47–72; Ht 162.6 cm; Wt 74.8 kg
[2018-05-05 06:11] LABS: BASOPHILS 0.3 % (0-2); EOSINOPHILS 1.1 % (0-7); HEMATOCRIT 36.9 % (36.0-48.0); HEMOGLOBIN 12.5 g/dL (12-16); IMMATURE GRANULOCYTES 0.5 % (0-5); LYMPHOCYTES 24.9 % (15-50); MCHC 33.9 g/dL (31.0-37.0); MCV 85.6 fL (80.0-100.0); NEUTROPHILS 60.2 % (40-80); PLATELET COUNT 296 10x3/uL (130-400); RBC 4.31 10x6/uL (4.00-5.40); RDW 13.3 % (11.5-14.5)
[2018-05-05 06:32] LABS: KETONE - SERUM SMALL mg/dL (NEGATIVE)
[2018-05-05 06:33] LABS: ALBUMIN 2.2 g/dL (3.4-5.0); ALKALINE PHOSPHATASE 86 U/L (46-116); ALT (SGPT) 36 U/L (10-68); BILIRUBIN - TOTAL 0.44 mg/dL (0.2-1.3); CALC OSMOLALITY 288 mosm/kg (275-300); CARBON DIOXIDE 17.1 mmol/L (21.0-32.0); CHLORIDE - SERUM 113 mmol/L (98-107); CREATININE - SERUM 0.5 mg/dL (0.6-1.3); GLUCOSE 182 mg/dL (74-106); POTASSIUM - SERUM 3.3 mmol/L (3.5-5.1); PROTEIN - SERUM 4.8 g/dL (6.4-8.2); SODIUM 143 mmol/L (136-145); UREA NITROGEN 10 mg/dL (7-18); eGFR NON AFRICAN AMERICAN > 90 mL/min (90-120)
[2018-05-05 06:38] LABS: CALCIUM 6.4 mg/dL (8.5-10.1)
[2018-05-06 00:30] VITALS: BP 133/68
[2018-05-06 04:30] VITALS: BP 136/74
[2018-05-06 05:50] LABS: BASOPHILS 0.4 % (0-2); EOSINOPHILS 2.8 % (0-7); HEMATOCRIT 38.4 % (36.0-48.0); HEMOGLOBIN 12.8 g/dL (12-16); IMMATURE GRANULOCYTES 0.6 % (0-5); LYMPHOCYTES 36.4 % (15-50); MCHC 33.3 g/dL (31.0-37.0); MCV 87.1 fL (80.0-100.0); MEAN PLATELET VOLUME 10.1 fL (7.4-10.4); MONOCYTES 11.1 % (2-11); NEUTROPHILS 48.7 % (40-80); PLATELET COUNT 250 10x3/uL (130-400); RBC 4.41 10x6/uL (4.00-5.40); RDW 13.3 % (11.5-14.5); WBC 11.6 10x3/uL (4.8-10.8)
[2018-05-06 06:14] LABS: CHLORIDE - SERUM 105 mmol/L (98-107); CHOL - HDL RATIO 7.8 ratio (2.3-4.1); CHOLESTEROL, TOTAL 250 mg/dL (0-200); GLUCOSE 156 mg/dL (74-106); HDL CHOLESTEROL 32 mg/dL (32-96); LDL CHOLESTEROL 159 mg/dL (0-100); SODIUM 140 mmol/L (136-145); TRIGLYCERIDE 298 mg/dL (30-200)
[2018-05-06 06:24] LABS: CALC OSMOLALITY 282 mosm/kg (275-300); CALCIUM 8.8 mg/dL (8.5-10.1); CARBON DIOXIDE 23.5 mmol/L (21.0-32.0); CREATININE - SERUM 0.8 mg/dL (0.6-1.3); POTASSIUM - SERUM 4.8 mmol/L (3.5-5.1); UREA NITROGEN 14 mg/dL (7-18); eGFR NON AFRICAN AMERICAN 75 mL/min (90-120)
[2018-05-06 08:16] VITALS: BP 126/72
[2018-05-06 11:21] VITALS: BP 114/58
[2018-05-06] MEDS ORDERED: LEVAQUIN750 MG PO (13:16)
[2018-05-06] MEDS ORDERED: PLAVIX75 MG PO ×2 (13:16→14:41)
[2018-05-06] MEDS ORDERED: METOPROLOL TART50 MG PO (13:16)
[2018-05-06] MEDS ORDERED: ASPIRIN81 MG PO (13:17)
[2018-05-06] MEDS ORDERED: PROTONIX40 MG PO (13:17)
[2018-05-06] MEDS ORDERED: PRAVACHOL20 MG PO ×2 (13:17→14:41)
[2018-05-06] MEDS ORDERED: HUMULIN R100 U/ML SC (13:17)
[2018-05-06] MEDS ORDERED: TOPROL XL50 MG PO (14:39)
== END 2018-05-06 15:58 | disposition home or self-care (01) | DRG 247 ==
LOC: D.ER 13:28 → D.CVICU 14:25 → D.ER 14:40 → D.M2 14:43 → D.CVICU 14:43 → D.M2 05-05 12:16
PROVIDERS: Internal Medicine Interventional Cardiology; Internal Medicine Nephrology
PROC: 4A023N7 Measurement of Cardiac Sampling and Pressure, Left Heart, Percutaneous Approach (ICD-10-PCS; 2018-05-04)
PROC: B2111ZZ Fluoroscopy of Multiple Coronary Arteries using Low Osmolar Contrast (ICD-10-PCS; 2018-05-04)
PROC: B2151ZZ Fluoroscopy of Left Heart using Low Osmolar Contrast (ICD-10-PCS; 2018-05-04)
PROC: 027034Z Dilation of Coronary Artery, One Artery with Drug-eluting Intraluminal Device, Percutaneous Approach (ICD-10-PCS; principal; 2018-05-04 13:43)
PROC: B240ZZ3 Ultrasonography of Single Coronary Artery, Intravascular (ICD-10-PCS; 2018-05-06)
PROC: B4101ZZ Fluoroscopy of Abdominal Aorta using Low Osmolar Contrast (ICD-10-PCS; 2018-05-06)
PROC: 027034Z Dilation of Coronary Artery, One Artery with Drug-eluting Intraluminal Device, Percutaneous Approach (ICD-10-PCS; 2018-05-06 09:00)
DX: I21.4 Non-ST elevation (NSTEMI) myocardial infarction (principal); I25.10 Atherosclerotic heart disease of native coronary artery without angina pectoris; I10 Essential (primary) hypertension; E78.5 Hyperlipidemia, unspecified; Z87.891 Personal history of nicotine dependence; E11.51 Type 2 diabetes mellitus with diabetic peripheral angiopathy without gangrene

== ENCOUNTER 2018-05-11 08:42 | Outpatient (CLI) | payer MEDICARE ==
[~2018-05-11] VITALS: Ht 162.6 cm; Wt 72.7 kg
--- NOTE | ~2018-05-11 | HEMODYNAMI ---
PATIENT:UDAY WILSON MEDICAL RECORD: [id number] : 46 LOCATION:D.CAT ADMISSION DATE: 05/11/18 Generatedon:05/11/201811:23 Patient name: UDAY WILSON Patient #: [id number] SSN: : 1950 Date of study: 05/11/2018 Page: Of Hemodynamic Procedure Report Patient Data Patient Demographics Procedure consent was obtained First Name: UDAY Gender: Female Last Name: STEVE : 1950 Patient #: [id number] Age: 68 year(s) Race: Unknown Additional ID: [id number] Contact details [address]: [address] [place] [address] State: [place] City: [place] Zip code: [address] Past Medical History Allergies Allergen Reaction Date Comments Reported Other allergy 05/11/2018 DAPSONE, PAXIL, AUGMENTIN Admission Admission Data Admission Date: 05/11/2018 Admission Time: 8:42 Lab Results Lab Result Date: 05/11/2018 Lab Result Time: 0:00 Biochemistry Name Units Result Min Max BUN mg/dl 15 --(--*-)-- 7 18 Creatinine mg/dl 0.8 --(-*--)-- 0.6 1.3 CBC Name Units Result Min Max Hemoglobin g/dl 12.7 -*(----)-- 13.5 17.5 Procedure Procedure Types Cath Procedure PCI Procedure Coronary Stent Coronary Stent Initial Procedure Description Procedure Date Procedure Date: 05/11/2018 Procedure Start Time: 11:13 Procedure End Time: 11:21 Procedure Staff Name Function Moise Gamboa MD Performing Physician Cullen Ribera RT Monitor Roxie Coleman RT Scrub Veronica Guidry RN Nurse Procedure Data Cath Procedure Fluoroscopy Diagnostic fluoroscopy Total fluoroscopy Time: 2.4 time: 2.4 min min Diagnostic fluoroscopy Total fluoroscopy dose: 252 dose: 252 mGy mGy Contrast Material Contrast Material Type Amount (ml) Isovue 300 50 Entry Location Entry Primary Successful Side Size Upsize Upsize Entry Closure [place] ccessful Closure Location (Fr) 1 (Fr) 2 (Fr) Remarks Device Remarks Radial Right 6 Fr Mechanical artery Short Compression Procedure Complications No complications Procedure Medications Medication Administration Route Dosage 0.9% NaCl I.V. 100 ml/hr Oxygen etCO2 Nasal cannula 2 l/min Lidocaine 2% added to field 20 Heparin Flush Bag added to field 2 bags (1000units/500ml NS) Radial Cocktail added to field 1 syringe (Verapomil 2mg/Nitro 400mcg/Heparin 1500units) Versed I.V. 2 mg Fentanyl I.V. 100 mcg Versed I.V. 2 mg Heparin Bolus I.V. 4000 units Versed I.V. 2 mg Fentanyl I.V. 50 mcg Hemodynamics Rest HGB: 12.7 (g/dl) Heart Rate: 91 (bpm) Snapshots Pre Cath Intra NCS Post Cath Vital Signs Time Heart Resp SPO2 etCO2 NIBP (mmHg) Rhythm Pain Sedation Rate (ipm) (%) (mmHg) Status Level (bpm) 10:31:11 92 14 99 25 155/84(130) NSR 0 (11) 10(A) , No pain 10:35:32 88 9 100 24 162/82(118) NSR 0 (11) 10(A) , No pain 10:39:50 79 15 98 15 133/71(106) NSR 0 (11) 10(A) , No pain 10:44:02 80 18 98 29.3 117/77(92) NSR 0 (11) 10(A) , No pain 10:48:13 76 15 98 21.8 116/72(90) NSR 0 (11) 10(A) , No pain 10:52:23 75 13 98 20.7 117/68(96) NSR 0 (11) 10(A) , No pain 10:56:37 79 14 97 20 110/60(88) NSR 0 (11) 10(A) , No pain 11:00:51 74 14 97 33 110/62(86) NSR 0 (11) 10(A) , No pain 11:05:03 81 14 99 26.2 107/69(83) NSR 0 (11) 10(A) , No pain 11:09:13 74 14 99 28.2 112/69(93) NSR 0 (11) 10(A) , No pain 11:13:25 85 14 98 28.5 128/68(94) NSR 0 (11) 10(A) , No pain 11:17:33 83 15 97 30 113/66(81) NSR 0 (11) 9(A) , No pain 11:21:47 87 19 98 20.3 120/64(94) NSR 0 (11) 10(A) , No pain Medications Time Medication Route Dose Verified Delivered Reason Not es Effectiveness by by 10:30:43 0.9% NaCl I.V. 100 Moise Veronica used for ml/hr Cooper Guidry process controls technician 10:30:51 Oxygen etCO2 2 l/min Moise Veronica used for Nasal Cooper Guidry procedure cannula RN 10:30:57 Lidocaine 2% added 20ml Moise Moise for local to vial Cooper Gamboa MD anesthetic field 10:31:01 Heparin Flush added 2 bags Moise Moise used for Bag to Cooper Gamboa MD procedure (1000units/500ml field NS) 10:31:07 Radial Cocktail added 1 Moise Moise used for (Verapomil to syringe Cooper Gamboa MD procedure 2mg/Nitro field 400mcg/Heparin 1500units) 11:08:17 Versed I.V. 2 mg Moise Veronica for sedation Cooper Guidry RN 11:08:23 Fentanyl I.V. 100 mcg Moise Veronica for sedation Cooper Guidry RN 11:13:07 Versed I.V. 2 mg Moise Veronica for sedation Cooper Guidry RN 11:15:28 Heparin Bolus I.V. 4000 Moise Veronica for chad ified units Cooper Guidry anticoagulation with Dr. THU Gamboa 11:16:14 Versed I.V. 2 mg Moise Veronica for sedation Cooper Guidry RN 11:16:19 Fentanyl I.V. 50 mcg Moise Veronica for sedation Cooper Guidry RN Procedure Log Time Note 10:15:07 Cullen Ribera RT(R) sent for patient. Start room use. 10:20:08 Diagnostic Cath status Elective 10:20:10 Signed procedure consent form obtained from patient. 10:20:13 Time tracking: Regular hours (M-F 7:00 - 5:00) 10:20:17 Plan of Care:Hemodynamics will remain stable., Cardiac rhythm will remain stable., Comfort level will be maintained., Respiratory function will remain adequate., Patient/ family verbilizes understanding of procedure., Procedure tolerated without complication., Recovers from procedure without complications.. 10:29:57 Vital chart was started 10:30:22 Patient received from Pre/Post Procedure Room to CCL 1 Alert and oriented. Tansferred to table in Supine position. 10:30:23 Warm blankets applied, and felisha hugger turned on for patient comfort. 10:30:23 Correct patient and procedure confirmed by team. 10:30:24 ECG and BP/O2 sat monitors applied to patient. 10:30: Baseline sample Acquired. 10:30:37 Rhythm: sinus rhythm 10::38 Full Disclosure recording started 10:30:40 Pre-procedure instructions explained to patient. 10:30:40 Pre-op teaching completed and patient verbalized understanding. 10:30:42 Family in patients room. 10:30:43 0.9% NaCl 100 ml/hr I.V. was administered by Veronica Guidry RN; used for procedure; 10:30:43 Patient NPO since Midnight. 10:30:51 Oxygen 2 l/min etCO2 Nasal cannula was administered by Veronica Guidry RN; used for procedure; ::57 Lidocaine 2% 20ml vial added to field was administered by Moise Gamboa MD; for local anesthetic; 10:31:01 Heparin Flush Bag (1000units/500ml NS) 2 bags added to field was administered by Moise Gamboa MD; used for procedure; 10:31:07 Radial Cocktail (Verapomil 2mg/Nitro 400mcg/Heparin 1500units) 1 syringe added to field was administered by Moise Gamboa MD; used for procedure; 10:31:10 Patient allergic to Other allergyDAPSONE, PAXIL, AUGMENTIN 10:31:16 Is patient on blood thinner?Yes 10:31:18 ACC The patient was administered the following blood thiners within the last 24 hours: ACCPlavix 10:31:29 Patient diabetic? No. 10:31:32 Previous problem with sedation/anesthesia? No ? 10:31:35 Snore? Yes 10:31:36 Sleep apnea? No 10:31:37 Deviated septum? No 10:31:38 Opens mouth fully? Yes 10:31:39 Sticks out tongue? Yes 10:31:40 Airway obstruction? No ? 10:31:42 Dentures? No ? 10:31:45 Modified Adriel's test Ulnar < 7 seconds 10:31:47 Patient pain scale 0/10 ?. 10:31:53 IV patent on arrival in left hand with 0.9% NaCl at [facility]. 10:32:22 Lab Result : Creatinine 0.8 mg/dl 10:32:22 Lab Result : BUN 15 mg/dl 10:32:22 Lab Result : Hemoglobin 12.7 g/dl 10:32:25 Lab results completed and on chart. 10:32:29 Right Radial & Left Groin area was prepped with chlora-prep and draped in sterile fashion 10:32:30 Alarms reviewed by R. N. 10:32:30 Sharps counted by scrub and verified by R.N. 10:32:41 Use device set CATH PACK 10:32:42 ACIST Syringe (94273) opened to sterile field. 10:32:42 ACIST Hand Control (42632) opened to sterile field. 10:32:43 ACIST Manifold (38182) opened to sterile field. 10:32:43 Medline Cath Pack ([id number]) opened to sterile field. 10:32:44 Bag Decanter (2002S) opened to sterile field. 10:32:46 DIAGNOSTIC WIRE .035 260cm J wire (275262) opened to sterile field. 10:33:08 SHEATH 6FR Slender (801060) opened to sterile field. 10:33:08 INFLATOR Merit BasixCompak (FQ2705) opened to sterile field. 10:33:09 CHOICE PT Extra Support 182cm wire ([id number]) opened to sterile field. 10:33:09 INFLATOR Merit BasixCompak (TC8396) opened to sterile field. 11:07:11 Physician arrived 11:07:12 --------ALL STOP TIME OUT------ 11:07:12 Final Timeout: patient, procedure, and site verified with staff and physician. All members of the team are in agreement. 11:07:16 Right Radial & Left Groin site verified by team. 11:07:20 Physical assessment completed. ASA score P 2 - A patient with mild systemic disease as per Moise Gamboa MD. 11::54 Sedation plan: IV Moderate Sedation Medication:Versed, Fentanyl ::17 Versed 2 mg I.V. was administered by Veronica Guidry RN; for sedation; :23 Fentanyl 100 mcg I.V. was administered by Veronica Guidry RN; for sedation; 11:13:00 Procedure started. 11:13:04 Local anesthetic to right radial artery with Lidocaine 2% by Moise Gamboa MD.INITIAL ACCESS ONLY :: Versed 2 mg I.V. was administered by Veronica Guidry RN; for sedation; ::17 A 6 Fr Short sheath was inserted into the Right Radial artery ::54 GUIDE 6FR XBLAD 3.5 catheter ([id number]) opened to sterile field. 11:14:09 6 Fr XBLAD 3.5 guide catheter was inserted over the wire 11:15:28 Heparin Bolus 4000 units I.V. was administered by Veronica Guidry RN; for anticoagulation; verified with Dr. Gamboa 11:15:36 CPTES wire advanced. 11:16:14 Versed 2 mg I.V. was administered by Veronica Guidry RN; for sedation; :19 Fentanyl 50 mcg I.V. was administered by Veronica Guidry RN; for sedation; :19:36 Place stent Inflation Number: 1 A CARINE RX 3.0 x 12 stent ([id number]) was prepped and advanced across the Prox LAD. The stent was deployed at 13 REMY for 0:15 (min:sec). 11:19:38 Stent catheter was removed intact over wire. 11:19:39 Wire removed. 11:19:41 Guide catheter removed. 11:19:49 Sheath removed intact; hemostasis achieved with Mechanical Compression to the Right Radial artery. 11:19:53 Procedure ended.(Physican Out) 11:20:10 Contrast amount:Isovue 300 50ml. 11:20:16 Fluoroscopy time 02.40 minutes. 11:20:21 Flurop Dose total: 252 :: Fluoroscopy dose: 252 mGy ::23 Sharps counted by scrub and verified by R.N. 11:20:26 TR band inflated with 12cc of air. 11:20:27 Insertion/operative site no bleeding no hematoma. 11:20:36 Post right radial artery:stable 11:20:37 Post Procedure Pulses reassessed and unchanged 11:20:48 Post procedure rhythm: sinus rhythm 11:20:50 Post procedure instruction explained to patient.Patient verbalizes understanding. 11:20:51 Procedure and supply charges have been captured, reviewed, submitted and are correct. 11:20:58 TR BAND Standard ([id number]) opened to sterile field. 11:21:14 Procedure Complication : No complications 11:21:17 Vital chart was stopped 11:21:17 See physician's report for complete and final results. 11:21:20 Report given to Pre/Post Procedure Room. 11:21:24 Patient transfered to Pre/Post Procedure Room with Stretcher. 11:21:26 Procedure ended. 11:21:26 Full Disclosure recording stopped 11:21:29 End room use (Document Last) Intervention Summary Intervention Notes Time ActionType Lesion and Equipment Used Action# Pressure Duration Attributes 11:19:36 Place stent Prox LAD CARINE RX 3.0 x 1 13 00:15 12 stent ([id number]) Device Usage Item Name Manufacture Quantity Catalog Number Hospital Part Current M inimal Lot# / Charge Number Stock Stock Serial# Code ACIST Syringe Acist 1 94817 841215 414560 285912 2 0 (56649) Medical Systems Inc ACIST Hand Acist 1 58327 975481 031143 298361 5 Control Medical (61713) Systems Inc ACIST Manifold Acist 1 53601 414867 120717 857058 5 (41111) Medical Systems Inc Medline Cath Medline 1 [id number] 647237 86993 262724 5 Pack ([id number]) Bag Decanter Microtek 1 2001S 105227 92392 399754 5 () Medical Inc. DIAGNOSTIC [place] 1 384683 225970 416488 505917 3 0 WIRE .035 260cm J wire (512147) SHEATH 6FR Terumo 1 [id number] 224607 390060 294997 5 Slender (80-1060) INFLATOR Merit Merit 2 UC0163 567687 765067 683070 1 5 [employer] SystemsnjVideoSurf (AX9535) CHOICE PT [place] 1 [id number] 530710 220168 301413 5 Extra Support Scientific 182cm wire ([id number]) GUIDE 6FR Cardinal 1 [id number] 961632 315294 205498 1 0 XBLAD 3.5 Health catheter (98049144) CARINE RX 3.0 x Medtronic 1 [id number] 757035 4678148 644528 5 [id number] 12 stent ([id number]) TR BAND Terumo 1 [id number] 969740 145285 525341 4 0 Standard ([id number]) Signature Audit [place] Stage Time Signature Unsigned Intra-Procedure 05/11/2018 Cullen Ribera RT(R) 11:23:14 AM Signatures Monitor : Cullen Ribera RT Signature : Date : Time : [place] [address] [place] [address]
[~2018-05-11 08:42] MED LIST: ASPIRIN81 MG PO; GLIMEPIRIDE1 MG PO; HUMULIN R100 U/ML SC; LANTUS SQ; LEVAQUIN750 MG PO; METOPROLOL TART50 MG PO; PLAVIX75 MG PO; PRAVACHOL20 MG PO; PRINIVIL20 MG PO; PROTONIX40 MG PO; TOPROL XL50 MG PO
[2018-05-11 09:17] VITALS: BP 156/77; Ht 162.6 cm; Wt 72.7 kg
[2018-05-11 09:37] LABS: BASOPHILS 0.7 % (0-2); EOSINOPHILS 3.1 % (0-7); HEMATOCRIT 38.1 % (36.0-48.0); HEMOGLOBIN 12.7 g/dL (12-16); IMMATURE GRANULOCYTES 0.8 % (0-5); MCH 28.9 pg (26.0-34.0); MCHC 33.3 g/dL (31.0-37.0); MCV 86.8 fL (80.0-100.0); MEAN PLATELET VOLUME 9.9 fL (7.4-10.4); MONOCYTES 8.1 % (2-11); NEUTROPHILS 62.3 % (40-80); RBC 4.39 10x6/uL (4.00-5.40); RDW 13.3 % (11.5-14.5); WBC 9.1 10x3/uL (4.8-10.8)
[2018-05-11 09:38] LABS: PLATELET COUNT 312 10x3/uL (130-400)
[2018-05-11 09:46] LABS: CALC OSMOLALITY 281 mosm/kg (275-300); CALCIUM 9.2 mg/dL (8.5-10.1); CARBON DIOXIDE 23.8 mmol/L (21.0-32.0); CHLORIDE - SERUM 105 mmol/L (98-107); CREATININE - SERUM 0.8 mg/dL (0.6-1.3); POTASSIUM - SERUM 4.6 mmol/L (3.5-5.1); SODIUM 141 mmol/L (136-145); UREA NITROGEN 15 mg/dL (7-18); eGFR NON AFRICAN AMERICAN 75 mL/min (90-120)
[2018-05-11 09:47] LABS: GLUCOSE 98 mg/dL (74-106)
--- NOTE | 2018-05-11 11:45 | NUR ---
PT SITTING UP IN BED, EATING SANDWICH. DENIES ANY C/O. VSS. TR BAND CDI, HAND WARM AND PULSES PALPABLE.
--- NOTE | 2018-05-11 11:49 | NUR ---
RECEIVED PT FROM SPA COORDINATOR, SEE ADMIT NOTE. PT IS ALERT, DENIES ANY C/O. TR BAND IS CDI, FINGERS WARM AND CAP REFILL IS BRISK. NSR, RATE IS 81, PT DENIES ANY C/O CHEST PAIN. BP IS 118/60. SAT IS 99% ON ROOM AIR. SANDWICH AND PO FLUIDS SERVED, FAMILY AT BEDSIDE, CALL LIGHT IN REACH.
--- NOTE | 2018-05-11 12:35 | NUR ---
TR BAND IS CDI, FINGERS WARM AND PULSES PALPABLE. PT DENIES ANY C/O. HAS DYLLAN SANDWICH WITH NO NAUSEA. VSS. CALL LIGHT IN REACH.
--- NOTE | 2018-05-11 12:53 | NUR ---
PT RESTING WITH EYES CLOSED, RESP WTIH EASE, VSS, TR BAND IS CDI.
--- NOTE | 2018-05-11 13:35 | NUR ---
PT SLEEPING, RESP WITH EASE ON ROOM AIR. TR BAND IS CDI, FINGERS WARM AND PULSES PALPABLE. VSS, CALL LIGHT IN REACH.
--- NOTE | 2018-05-11 13:37 | HP ---
PATIENT: UDAY WILSON MEDICAL RECORD: [id number] ACCOUNT: [id number] LOCATION:[place] : 46 ADMISSION DATE: 05/11/18 PCP: Undefined Provider HISTORY AND PHYSICAL EXAMINATION ADMITTING DIAGNOSES: 1. Angina. 2. Coronary artery disease. 3. Recent percutaneous transluminal coronary angioplasty stent of left circumflex and right coronary artery concomitant disease of left anterior descending. 4. Hypertension. 5. Hyperlipidemia. HISTORY OF PRESENT ILLNESS: Mrs. Wilson presents with a myocardial infarction, found to have 3-vessel coronary artery disease, underwent PTCA stent of the RCA and left circumflex. He is now brought back for PTCA stent of the LAD. PHYSICAL EXAMINATION: GENERAL APPEARANCE: Well-nourished, well-developed, appears stated age. Level of distress, comfortable. PSYCHIATRIC: Mental status, alert, normal affect. Orientation, oriented to time, place and person. EYES: Lids and conjunctiva, noninjected. No discharge, no pallor. ENT: Lips, teeth, gums, normal dentition. Oropharynx, no cyanosis, no pallor. NECK: Carotid arteries, bilateral normal upstroke, no bruits, no thrills. JUGULAR VEINS: No jugular venous pressure or distention. CERVICAL LYMPH NODES: Nontender, nonenlarged. THYROID: Not enlarged. Nontender. No nodules. LUNGS: Respiratory effort, unlabored. CHEST: Normal curvature. No thoracic deformity. No chest wall tenderness. Percussion, resonant. Auscultation, clear. No wheezes, no rales, no rhonchi. CARDIOVASCULAR: Precordial exam, nondisplaced. No heaves or pericardial thrills. Rate and rhythm, regular. Heart sounds, normal S1, normal S2. No S3, no gallop, no rub. Systolic murmur, not heard. Diastolic murmur, not heard. EXTREMITIES: No cyanosis, no edema. Peripheral pulses, full and equal in all extremities, except as noted. No bruits appreciated. ABDOMEN: Soft, nondistended. Normal aorta. No bruit. Nontender. No masses. Liver, nontender, no hepatomegaly. Spleen, nontender, no splenomegaly. MUSCULOSKELETAL: No joint tenderness. No joint swelling. No erythema. NEUROLOGICAL: Normal gait, normal strength, normal tone. SKIN: Warm and dry. OVERALL IMPRESSION: Anginal symptomatology with significant disease of the left anterior descending. We will proceed with percutaneous transluminal coronary angioplasty stent of the left anterior descending. TRANSINT:[id number] Voice Confirmation ID: [id number] DOCUMENT ID: [id number] HISTORY AND PHYSICAL [id number] UDAY WILSON JEFFREY MD at 1337 CC: [id number] DICTATION DATE: 05/11/18 1122 RADIUS CORNER MACHINE OPERATOR: 05/11/18 1128 [address] [place] [id number] [place] [id number]
--- NOTE | 2018-05-11 13:37 | OP ---
PATIENT NAME: UDAY WILSON MEDICAL RECORD: [id number] :[birth year] LOCATION:D.CAT ADMISSION DATE: SURGEON: NATHAN TAYLOR MD DATE OF OPERATION: 05/11/2018 PROCEDURES: 1. PTCA and stent of LAD. 2. Selective coronary angiography. PROCEDURE IN DETAIL: After informed consent was obtained and detailed explanation of risks, benefits as well as alternative therapies, the patient elected to proceed with angiogram and angioplasty. The right radial area was prepped and draped in normal sterile fashion. Right radial artery was cannulated via modified Seldinger technique with placement of 6-St Lucian sheath. All catheters exchanged through this sheath. FINDINGS: The left anterior descending has 85% to 90% stenosis proximally. This was addressed with a 3.0 x 12-mm Pedro Pablo. The result was 0% residual stenosis. OVERALL IMPRESSION: Successful PTCA and stent of the LAD going from 85% to 90% initial stenosis to 0% residual. TRANSINT:[id number] Voice Confirmation ID: [id number] DOCUMENT ID: [id number] NATHAN TAYLOR MD at 1337 CC: [id number] DICTATION DATE: 05/11/18 1123 CHEMICAL MACHINE TENDER: 05/11/[address] [facility] [address] [place] [id number]
--- NOTE | 2018-05-11 14:32 | NUR ---
3CC OF AIR REMOVED FROM TR BAND. TOLERATED WELL. NO BLEEDING OR HEMATOMA NOTED.
--- NOTE | 2018-05-11 14:40 | NUR ---
3 CC OF AIR WEANED FROM TR BAND WITH NO BLEEDING NOTED. FINGERS WARM AND CAP REFILL IS BRISK. PT IS ALERT AND DENIES ANY C/O.
--- NOTE | 2018-05-11 14:57 | NUR ---
3 CC OF AIR WEANED FROM TR BAND WTIH NO BLEEDING NOTED. HAND IS WARM AND CAP REFILL IS BRISK. PT DENIES ANY C/O. ASSISTED PT ONTO THE BEDPAN AND PT HAS VOIDED QS. CALL LIGHT IN REACH.
--- NOTE | 2018-05-11 15:11 | NUR ---
IV DC'D WITH CATH INTACT AND PT IS DRESSING FOR DC TO HOME WITH ASSIST.
--- NOTE | 2018-05-11 15:30 | NUR ---
2X2 AND TEAGDERM CDI TO RIGHT WRIST. FINGERS WARM AND PULSES PALPABLE. PT HAS DRESSED FOR DC TO HOME. HAS AMBULATED TO THE BATHROOM AND VOIDED QS. DC INSTRUCTIONS HAVE BEEN REVIEWED WITH PT WHO VERBALIZES UNDERSTANDING. PT ESCORTED TO PRIVATE AUTO VIA WC BY NURSE WITH FRIEND DRIVING HER HOME.
== END 2018-05-11 15:30 | disposition home or self-care (01) ==
LOC: D.CATH 08:42
PROVIDERS: Internal Medicine Interventional Cardiology
DX: I21.9 Acute myocardial infarction, unspecified (principal); I25.119 Atherosclerotic heart disease of native coronary artery with unspecified angina pectoris; I10 Essential (primary) hypertension; E78.5 Hyperlipidemia, unspecified